=== PATIENT | male | born 1970 | race Caucasian/White ===

== ENCOUNTER 2018-01-31 01:23 | Observation (INO) ==
[2018-01-31] MEDS ORDERED: Nitroglycerin 0.4 MG TAB.SUBL SL PRN (04:22)
[2018-01-31] MEDS ORDERED: Acetaminophen 325 MG TABLET PO PRN (04:23)
[2018-01-31] MEDS ORDERED: Naloxone 0.4 MG/ML INJ IVP PRN (04:23)
--- NOTE | 2018-01-31 04:28 | Internal Med History&Physical ---
Date of Encounter: 01/31/18 Time of Encounter: 04:24 Internal Medicine - H&P: HPI Chief complaint: Chest pain Admitted From: Direct Admit Plans for Post Hospital Care: Home History of present illness: Mr. Good is a 47 year old male who is fairly healthy with no significant past medical history and does not really follow up with doctors regularly who presents from [place] due to multiple episodes of chest pain over the last couple days. The first one happened 2 days ago at work. He was not really exerting himself at the time and experienced left-sided chest pain and to same time felt left forearm tightness. At its worst it was 7 out of 10. Denies diaphoresis, shortness of breath, dizziness. This resolved within seconds. The following morning at work it happened again with almost the exact episode. Later in the day at home he had an argument with his and experienced a similar episode but this time it was bit stronger. Same exact radiation to the forearm happens. The pain resolves on its own within seconds. The family had a stress test many years ago that he says was normal. He says he once had high cholesterol numbers but never really been on treatment. He has a father who had an NE in his 60s. He reports that his mother has "heart problems". Does not smoke and says he never smoked. Currently chest pain-free. He received aspirin 325 mg and Nitropaste while in [place]. Rest of workup was unremarkable including a set of troponins. Chest x-ray was clear. EKG with no ST or T-wave abnormalities. Patient was sent here for a stress test in chest pain rule out. Denies any fever, chills, nausea, vomiting, shortness of breath , abdominal pain, constipation, diarrhea, urinary symptoms, or neurological symptoms. Past Med Surg Social Fam HX - Past Medical History Medical history: no medical history Psychiatric history: no psych history - Social History Smoking Status: Never smoker Smokeless Tobacco Status: No Alcohol use: none Drug use: none Internal Medicine - H&P: Meds No Known Home Drugs 01/31/18 [History] 3 Allergy/AdvReac Type Severity Reaction Status Date / Time No Known Allergies Allergy Verified 01/31/18 00:06 All Systems PM: A 10-system review of systems was performed and is negative for pertinent findings except as documented above in the HPI. Review of systems: All systems reviewed are negative except for as mentioned above - Constitutional Vitals: Temp Pulse Resp BP Pulse Ox 97.7 F 60 18 111/83 96 01/31/18 03:19 01/31/18 03:19 01/31/18 03:19 01/31/18 03:19 01/31/18 03:19 Exam: GEN: NAD HEENT: AT, NC, No cyanosis, oral mucosa is moist, No JVD Lymphatics: No lymphadenoapthy Eyes: Extrocular muscles intact, anicteric CVS:RRR. S1, S2, No m/r/g RESP: CTAB ABD: Soft, NT, ND, +BS EXT: No edema, No rashes, 2+ DP NEURO: Nonfocal, CN II-XII intact, No focal motor or sensory deficits Psych: Cooperative, Not anxious or depressed - Assessment and plan (1) Chest pain Current Visit: No Status: Acute Assessment and plan: EKG with no ST or T-wave abnormalities. Trend cardiac enzymes. Stress test in am. NPO. SL nitro. Risk stratification with Lipid panel and Hgb A1c. Tele. Received ASA 324 mg already. Qualifiers: Chest pain type: unspecified Qualified Code(s): R07.9 - Chest pain, unspecified (2) DVT prophylaxis Current Visit: Yes Status: Acute Assessment and plan: SCDs - Time Spent With Patient Total time spent is greater than 50% in coordination of care (as documented) at patient's floor/unit and/or counseling patient:
[2018-01-31] MEDS ORDERED: Regadenoson 0.4 MG/5 ML SYRINGE IVP ONE (06:14)
[2018-01-31 06:29] LABS: Chol/HDL Ratio 4.7 (0-4.9)
[2018-01-31 06:36] VITALS: BP 111/70
[2018-01-31 06:40] LABS: Thyroid Stimulating Hormone 1.083 mcIU/mL (0.340-5.600)
[2018-01-31 11:24] LABS: Estimated Average Glucose 94 mg/dl; Hemoglobin A1C 4.9 %
--- NOTE | 2018-01-31 13:34 | Discharge Summary ---
<Nitesh Dorsey - Last Filed: 01/31/18 16:57> Orders not resulted at time of discharge: Pending orders 01/31/18 04:19 EKG [ECG 12 lead ECG] [ECG] Stat 01/31/18 08:00 NM daisy perf SPECT multi [NM] Routine Date of Encounter: 01/31/18 Time of Encounter: 13:32 - Discharge Diagnosis (1) Chest pain Priority: Primary Status: Acute Qualifiers: Chest pain type: unspecified Qualified Code(s): R07.9 - Chest pain, unspecified Hospital course: Mr. Good is a 47 year old male with no known medical history who presented to the ER with left-sided substernal chest pain that radiated towards his left arm. This occurred at the time of our human he was having with his , and he described it as a 7 out of 10 pressure in his chest. He has never had any pain like this before, and he does not have any significant medical history, however he does have a family history of early heart disease. On arrival to the ED, the patient had a normal-appearing EKG without ST-T wave abnormalities, and a normal chest x-ray. The patient was transferred from [place] to [facility] for stress test. The patient's troponins came back negative, and his chest pain seemed to resolve without any recurrence. He did undergo a nuclear stress test this morning which was negative for any ischemia or wall motion abnormalities. The patient's labs were grossly normal including a relatively normal lipid panel, and he remained hemodynamically stable. ASCVD risk is 1. The patient is stable for discharge to PCP follow-up in 3-5 days. I have spoken to the patient about his normal test findings, and he understands and agrees to follow-up. Discharge discussed with: patient, family, nurse, case management - Time Spent with Patient Total time spent providing and/or coordinating discharge services: - Discharge Medications Home Medications: No Known Home Drugs 01/31/18 [History] Allergies/Adverse Reactions: 3 Allergy/AdvReac Type Severity Reaction Status Date / Time No Known Allergies Allergy Verified 01/31/18 00:06 Date of admission: 01/31/18 03:03 Primary care physician: PCP NONE Discharging clinician: Nitesh Dorsey Anticipated date of discharge: 01/31/18 - Constitutional Vitals: Temp Pulse Resp BP Pulse Ox 97.7 F 55 15 111/70 96 01/31/18 06:34 01/31/18 06:34 01/31/18 06:34 01/31/18 06:34 01/31/18 06:34 Exam: Gen.: Vitals noted. No acute distress. HEENT: Normocephalic, atraumatic Neck: Supple. No adenopathy. Cardiac: RRR, no murmur, +S1/S2 Pulmonary: CTA bilaterally, no wheezes, rales or rhonchi, equal chest expansion Abdomen: soft, nontender, BS noted, no guarding MSK: ROM intact, no joint swelling noted Extremities: no BLE edema, nontender calf, no cyanosis or clubbing Neuro: A&Ox3, moves all extremities, no focal deficits Psych: Appropriate mood and behavior - Patient Status Disposition: Home, Self-Care Condition: Good Functional capacity at discharge: independent ambulation Overall status at discharge: patient is back to baseline - Discharge Instructions Instructions: Chest Pain (DC) Follow Up With: SULTANA JEFFERSON [Other] NONE,PCP [Primary Care Provider] - [facility] [Outside] Additional Instructions: Patient should follow-up with primary care within next week. If he does not have a PCP, we will give referral to the residency clinic. Continue to increase exercise as tolerated. Avoid high fat foods and decrease red meat consumption, eat leafy green vegetables. Return to the ED for significant chest pain, shortness of breath, changes in levels of consciousness. - Diet and Activity Activity: increase activity as tolerated, resume usual activities as tolerated Diet: regular diet <Moreno Rust - Last Filed: 01/31/18 18:54> - NOTES TO OUTPATIENT PROVIDER Notes to Outpatient Provider: Needs further primary care monitoring Orders not resulted at time of discharge: Pending orders 01/31/18 04:19 EKG [ECG 12 lead ECG] [ECG] Stat 01/31/18 08:00 NM daisy perf SPECT multi [NM] Routine Date of Encounter: 01/31/18 - Discharge Diagnosis (1) Chest pain Priority: Primary Status: Ruled-out Qualifiers: Chest pain type: chest pain due to myocardial ischemia Ischemic chest pain type: unstable angina pectoris Qualified Code(s): I20.0 - Unstable angina (2) DVT prophylaxis Priority: Secondary Status: Acute Hospital course: Mr. Good is a 47 year old male - Time Spent with Patient Total time spent providing and/or coordinating discharge services: Date of admission: 01/31/18 03:03 Primary care physician: PCP NONE - Constitutional Vitals: Temp Pulse Resp BP Pulse Ox 97.7 F 55 15 111/70 96 01/31/18 06:34 01/31/18 06:34 01/31/18 06:34 01/31/18 06:34 01/31/18 06:34 - Attending Attestation I examined this patient and my medical decision-making was reviewed with the Resident Physician on 01/31/18. I agree with the documented findings, disposition and treatment plan as described except to the extent set forth below. Mr Good has been in observation for chest pain. He has negative stress test. He is asymptomatic at this time. He is ready for discharge home. Exam alert Comfortable Mucus membranes dry Heart reg No wheeze Plan D/C today.
== END 2018-01-31 15:35 | disposition home or self-care (01) ==
LOC: 2NENU
PROVIDERS: ADMIT Family Medicine; ATTEND Internal Medicine

== ENCOUNTER 2019-10-06 11:23 | Observation (INO) ==
[2019-10-06] MEDS ORDERED: Ondansetron 4 MG/2 ML VIAL IVP PRN (14:26)
[2019-10-06] MEDS ORDERED: *HR* HYDROcodone/Acet 5/325 mg TABLET PO PRN (14:26)
[2019-10-06] MEDS ORDERED: Naloxone 0.4 MG/ML INJ IVP PRN (14:26)
[2019-10-06] MEDS ORDERED: Acetaminophen 325 MG TABLET PO PRN (14:26)
[2019-10-06] MEDS ORDERED: Ipratropium/Albuterol Neb 3 ML IH PRN (15:00)
[2019-10-06] MEDS ORDERED: Nitroglycerin 0.4 MG TAB.SUBL SL PRN (15:00)
[2019-10-07 02:17] LABS: Basophils % 0.6 %; Eosinophils # 0.2 K/mcL (0.0-0.6); Eosinophils % 2.9 %; Hematocrit 45.1 % (37.5-50.1); Hemoglobin 15.9 g/dL (12.9-16.9); Immature Granulocytes % 0.2 % (0-4); Lymphocytes # 1.5 K/mcL (0.6-4.6); Lymphocytes % 23.6 %; Mean Corpuscular HGB Conc 35.3 g/dL (31.6-35.5); Mean Corpuscular Hemoglobin 31.5 pg (28.0-33.3); Mean Corpuscular Volume 89.5 fL (83.0-100.0); Mean Platelet Volume 10.1 fL (9.4-12.4); Monocytes # 0.6 K/mcL (0.0-1.3); Monocytes % 10.2 %; Neutrophils # 3.9 K/mcL (1.6-8.9); Platelet Count 203 K/mcL (140-400); Red Blood Count 5.04 M/mcL (4.19-5.50); Red Cell Distribution Width 12.3 % (11.5-14.5); Segmented Neutrophils % 62.5 %; White Blood Count 6.3 K/mcL (4.3-11.1)
[2019-10-07 02:40] LABS: Alanine Aminotransferase 25 Units/L (7-52); Albumin 4.1 g/dL (3.5-5.7); Albumin/Globulin Ratio 1.7 (1.1-2.2); Alkaline Phosphatase 93 Units/L (34-104); Aspartate Amino Transferase 22 Units/L (13-39); BUN/Creatinine Ratio 16 (6-26); Bilirubin,Direct 0.2 mg/dL (0.0-0.2); Blood Urea Nitrogen 14 mg/dL (6-20); Carbon Dioxide 26 mEq/L (23-29); Chloride 102 mEq/L (98-107); Chol/HDL Ratio 5.2 (0-4.9); Cholesterol 178 mg/dL (< 200); Globulin 2.4 g/dL (2.4-3.5); Glucose 100 mg/dL (70-105); HDL Cholesterol 34 mg/dL (40-59); LDL Cholesterol,Calculated 125 mg/dL (0-99); Osmolality,Calculated 291 (280-300); Potassium 3.4 mEq/L (3.5-5.1); Sodium 140 mEq/L (136-145); Total Protein 6.5 g/dL (6.4-8.9); Triglycerides 94 mg/dL (< 150); Troponin I < 0.03 ng/mL (< 0.04); eGFR For African Americans > 60 (> 60); eGFR For Non-African Americans > 60 (> 60)
[2019-10-07] MEDS ORDERED: Aspirin Enteric Coated 81 MG Tablet PO SCH (09:00)
[2019-10-07] MEDS ORDERED: 0.9 % Sodium Chloride 1,000 ML ONE ×2 (10:58→13:11)
[2019-10-07] MEDS ORDERED: *HR* Midazolam HCl 2 MG/2 ML VIAL ONE ×2 (11:06→13:11)
[2019-10-07] MEDS ORDERED: *HR* FentaNYL (PF) 100 MCG/2 ML VIAL ONE ×2 (11:07→13:10)
[2019-10-07] MEDS ORDERED: ISOVUE-370 200 ML INFUS..BTL ONE (13:11)
[2019-10-07] MEDS ORDERED: Heparin 1,000 UNITS/500 mL 500 ML ONE (13:11)
[2019-10-07] MEDS ORDERED: *HR* Heparin 10,000 UNIT/10 ML VIAL ONE (13:11)
[2019-10-07] MEDS ORDERED: Nitroglycerin 1,000 MCG/10 ML VIAL IV ONE (13:12)
[2019-10-07] MEDS ORDERED: amLODIPine 5 MG TABLET PO SCH (13:44)
[2019-10-07 15:00] VITALS: BP 127/84
== END 2019-10-07 15:34 | disposition home or self-care (01) ==
LOC: 3BNU
PROVIDERS: ADMIT Internal Medicine; ATTEND Internal Medicine